=== PATIENT | male | born 1940 | race Caucasian/White ===

== ENCOUNTER 2018-01-26 20:28 | Emergency (ER) | payer MEDICARE, BC ==
[~2018-01-26] VITALS: Ht 185.4 cm; Wt 114.1 kg
[~2018-01-26 20:28] MED LIST: CARAFATE 1GM1 G PO; CELEXA; CELEXA10 MG PO; FLECAINIDE; KLONOPIN 0.5MG0.5 MG PO; LASIX 20MG TABL20 MG PO; LOPID 600M600 MG/TAB PO; LOPID PO; LOPRESSOR 550 MG/TAB; METAPROLOL; NAPROSYN500 MG PO; NEXIUM PO; NORCO 325 MG-51 TAB PO; NORCO 325 MG-7.1 TAB PO; NORVASC 5MG5 MG/TAB PO; PRAVACHOL80 MG PO; PROAIR HFA0.09 MG/AC IH; RESTORIL30 MG PO; SIMVASTATIN; ZOCOR 80MG80 MG
[2018-01-26 20:36] VITALS: TEMP 98.2
[2018-01-26] MEDS ORDERED: PRILOSEC 20MG20 MG PO (20:46)
[2018-01-26] MEDS ORDERED: LIPITOR 10MG10 MG PO (20:48)
[2018-01-26] MEDS ORDERED: TAMBOCOR 1100 MG/TAB PO (20:49)
[2018-01-26] MEDS ORDERED: CARAFATE 1GM1 G PO (20:51)
[2018-01-26 21:18] VITALS: BP 146/70; PULSE 62
== END 2018-01-26 21:18 | disposition home or self-care (01) ==
LOC: COL.ER 20:28
DX: I10 Essential (primary) hypertension (principal); J44.9 Chronic obstructive pulmonary disease, unspecified; F17.210 Nicotine dependence, cigarettes, uncomplicated; Z90.49 Acquired absence of other specified parts of digestive tract; Z90.89 Acquired absence of other organs

== ENCOUNTER 2019-01-29 10:52 | Emergency (ER) | payer MEDICARE, BC ==
[~2019-01-29] VITALS: Ht 185.4 cm; Wt 111.5 kg
[~2019-01-29 10:52] MED LIST changes: +LIPITOR 10MG10 MG PO; +PRILOSEC 20MG20 MG PO; +TAMBOCOR 1100 MG/TAB PO
[2019-01-29 11:08] VITALS: TEMP 98.8
[2019-01-29] MEDS ORDERED: PERCOCET 325 MG1 TA3 PO (12:37)
[2019-01-29 13:01] VITALS: BP 139/80; PULSE 72
== END 2019-01-29 13:05 | disposition home or self-care (01) ==
LOC: COL.ER 10:52
DX: S16.1XXA Strain of muscle, fascia and tendon at neck level, initial encounter (principal); S40.012A Contusion of left shoulder, initial encounter; I10 Essential (primary) hypertension; F17.210 Nicotine dependence, cigarettes, uncomplicated; W19.XXXA Unspecified fall, initial encounter
CPT/HCPCS: J1170; J2550

== ENCOUNTER 2019-01-30 17:51 | Emergency (ER) | payer MEDICARE, BC ==
[~2019-01-30] VITALS: Ht 185.4 cm; Wt 100.0 kg
[~2019-01-30 17:51] MED LIST changes: +PERCOCET 325 MG1 TA3 PO
[2019-01-30 17:52] VITALS: TEMP 97.7
[2019-01-30 19:50] LABS: BASO % 0.2 % (0.0-2.0); EOS % 0.3 % (0-4.0); GRAN # 9.4 (1.4-6.5); GRAN % 81.2 % (42.2-75.2); HEMATOCRIT 42.4 % (42.0-52.0); LYMPH # 0.8 (1.2-3.4); LYMPH % 7.2 % (20.0-51.0); MEAN CELL VOLUME 91 fl (80.0-100.0); MEAN CORPUSCULAR HEMOGLOBIN 30 pg (27.0-31.0); MEAN CORPUSCULAR HGB CONC 33 g/dl (33.0-37.0); MEAN PLATELET VOLUME 9.6 fl (7.4-10.4); MONO # 1.3 (0.1-0.6); MONO % 10.8 % (1.7-9.3); PLATELET COUNT 155 K/mm3 (130-400); RED BLOOD COUNT 4.67 M/mm3 (4.20-5.60)
[2019-01-30 19:59] LABS: ALANINE AMINOTRANSFERASE 14 U/L (21-72); ALBUMIN 4.1 gm/dL (3.5-5.0); ALKALINE PHOSPHATASE 133 U/L (50-136); ANION GAP 9 mmol/L (7-16); AST,SGOT 37 U/L (15-37); BLOOD UREA NITROGEN 9 mg/dL (9-20); CALCIUM 8.9 mg/dL (8.4-10.2); CARBON DIOXIDE 29 mmol/L (22-30); CHLORIDE 100 mmol/L (98-107); CREATINE KINASE 206 U/L (55-170); CREATININE, serum 0.76 (0.66-1.25); GLUCOSE 133 mg/dL (74-106); POTASSIUM 3.3 mmol/L (3.4-5.0); SODIUM 138 mmol/L (137-145); TOTAL PROTEIN 7.9 gm/dL (6.4-8.2)
[2019-01-30 20:01] LABS: INR 1.3 (0.8-3.0); PROTHROMBIN TIME 14.5 SECONDS (9.7-12.8)
[2019-01-30 20:02] LABS: ALCOHOL(ethanol),MEDICAL < 10 mg/dL
[2019-01-30 20:04] LABS: PARTIAL THROMBOPLASTIN TIME 34.6 SECONDS (26.0-37.0)
[2019-01-30 20:12] LABS: TROPONIN-I < 0.012 ng/mL (0.000-0.035)
[2019-01-30 21:40] VITALS: BP 114/73; PULSE 107
== END 2019-01-30 21:45 | disposition short-term general hospital (02) ==
LOC: COL.ER 17:51
PROVIDERS: Emergency Medicine
DX: M54.2 Cervicalgia (principal); M54.6 Pain in thoracic spine; I48.91 Unspecified atrial fibrillation; I10 Essential (primary) hypertension; E78.5 Hyperlipidemia, unspecified; F17.210 Nicotine dependence, cigarettes, uncomplicated; Z90.49 Acquired absence of other specified parts of digestive tract; W18.30XA Fall on same level, unspecified, initial encounter
CPT/HCPCS: J1170; J1650; J2405; J7030

== ENCOUNTER 2019-05-19 20:28 | Emergency (ER) | payer MEDICARE, BC ==
[~2019-05-19] VITALS: Ht 185.4 cm; Wt 111.4 kg
[2019-05-19 20:33] VITALS: BP 142/69; TEMP 97.6
[2019-05-19 20:48] LABS: COLLECTION METHOD CLEAN CATCH
[2019-05-19 21:04] LABS: PH 6 (5-8); SQUAMOUS EPITHELIAL None Seen /hpf; URINE APPEARANCE Cloudy; URINE BACTERIA None Seen /hpf; URINE BILIRUBIN Negative (NEGATIVE); URINE BLOOD 3+ (NEGATIVE); URINE COLOR Amber; URINE GLUCOSE Negative (NEGATIVE); URINE KETONE Negative (NEGATIVE); URINE LEUKOCYTE ESTERASE 2+ (NEGATIVE); URINE NITRATE Negative (NEGATIVE); URINE PROTEIN(semi-quant) 2+ (NEGATIVE); URINE RBC >50 /hpf
[2019-05-19] MEDS ORDERED: CEFTIN500 MG PO (21:18)
[2019-05-19 21:33] VITALS: PULSE 54
== END 2019-05-19 21:35 | disposition home or self-care (01) ==
LOC: COL.ER 20:28
PROVIDERS: Emergency Medicine
DX: N39.0 Urinary tract infection, site not specified (principal); I10 Essential (primary) hypertension; I48.91 Unspecified atrial fibrillation; E78.5 Hyperlipidemia, unspecified; Z90.49 Acquired absence of other specified parts of digestive tract; Z90.89 Acquired absence of other organs
CPT/HCPCS: J0696

== ENCOUNTER 2020-10-27 12:26 | Observation (INO) | payer MEDICARE, BC ==
[2020-10-27] VITALS (8 sets, daily range): BP systolic 123–143; BP diastolic 64–71; PULSE 51–61; TEMP 97.4–98.3
[~2020-10-27] VITALS: Ht 185.4 cm; Wt 101.4 kg
[~2020-10-27 12:26] MED LIST changes: +CEFTIN500 MG PO
[2020-10-27] MEDS ORDERED: ELIQUIS 5MG PO (13:13)
--- NOTE | 2020-10-27 15:00 | NUR ---
PT ARRIVED INTO OP PER WC. PT DROPPED HIM OFF AND WENT HOME. PT HAD SEEN DR NORTH IN THE OFFICE C/O GROSS HEMATURIA. PT ADMITTED FOR PROCEDURE. VSS. HR ANATOLY AT 40 AND SLIGHTLY IRREGULAR, AFEBRILE. HOSPITALIST NOTIFIED OF HR. PT STATED HAVING 6 SHOTS OF BOURBON AND HAD TAKEN HIS BP MEDS AND ELOQUIST. BREAKFAST WAS EATEN AT 9AM. LAST DRINK AT 11;00AM. PT ANSWERED AFFIRMATIVE TO THE SUICIDE QUESTIONS AND TANDEM OPERATOR WAS NOTIFIED. PT IS IN BED. IV STARTED TO LEFT WRIST (#20).SIDE RAILS UP, CALL LIGHT IN REACH.
--- NOTE | 2020-10-27 16:32 | NUR ---
GREGORY responded to consult. The patient is to have surgery today and arrived intoxicated. He also answered yes to the first two questions on the suicide assessment quiz. GREGORY met with the patient and addressed the above. The patient states that he had 3-4 oz of bourbon before coming in today. He states that he does drink every evening and has bourbon. SW discussed inpatient/outpatient alcohol treatment. The patient states that he is not interested in any treatment and can quit on his own if he wants to. The patient states that he has been more sad lately, because his has talked about them moving to [place] to live closer to their daughter. He states that this area is his home and all he knows. He states that he has had thoughts of suicide, but could and wound never go through with it. SW discussed talking to someone and informed him of the different outpatient mental health options. The patient states that he has gone to [facility] in the past. SW offered to get him re-established and an appointment at [facility]. The patient states that he does not want to get get set up with [facility] or anywhere else right now. GREGORY informed him that GREGORY would provide his RN with a list of resources. The patient verbalized understanding and was agreeable to this. The patient states that he lives in [place] with his , Natasha (ph#[phone]). GREGORY updated the surgical staff on the above information and provided them with the list of outpatient mental health and drug and alcohol resources. GREGORY then contacted and updated the patient's , Natasha. Natasha is aware of the patient's drinking and sadness. She states that plan is for the patient to return back home with her, as long as he is able to.
--- NOTE | 2020-10-27 17:40 | NUR ---
PATIENT IS DROWSY BUT ORIENTED X3. VSS. DENIES PAIN. CBI INFUSING AT MOD RATE. SPARROW TO DD WITH CLEAR YELLOW URINE NOTED, NO CLOTS. PATIENT WAS ADMITED WITH ETOH OF 179. PATIENT HAS AN EXTENSIVE ALCOHOL ABUSE HX. PATIENT ALSO REPORTS HEMATURIA FOR THE LAST COUPLE MONTH BUT HAS RECENTLY GOTTEN WORSE. SEIZURE PRECAUTIONS IN PLACE. TELE ON. PATIENT ALSO HAS CARDIAC HX OF A-FIB AND WAS TAKING ELEQUIS. HEAD TO TOE ASSESSMENT COMPLETE. PATIENT SLEEPING. IV FLUIDS INFUSING INTO LEFT WRIST IV. CLEARS AT BEDSIDE. NO ISSUES WITH N/V. PATIENT RESTING QUIETLY WITH CALL LIGHT IN REACH.
[2020-10-27 17:52] LABS: BASO # 0.1 (0.0-0.2); BASO % 0.9 % (0.0-2.0); EOS # 1.6 (0.0-0.7); EOS % 20.8 % (0-4.0); GRAN # 4.2 (1.4-6.5); GRAN % 54.2 % (42.2-75.2); HEMATOCRIT 42.9 % (42.0-52.0); HEMOGLOBIN 14.2 g/dl (13.5-18.0); LYMPH # 1.4 (1.2-3.4); LYMPH % 18.4 % (20.0-51.0); MEAN CELL VOLUME 94 fl (80.0-100.0); MEAN CORPUSCULAR HEMOGLOBIN 31 pg (27.0-31.0); MEAN CORPUSCULAR HGB CONC 33 g/dl (33.0-37.0); MEAN PLATELET VOLUME 9.1 fl (7.4-10.4); MONO # 0.4 (0.1-0.6); MONO % 5.4 % (1.7-9.3); PLATELET COUNT 146 K/mm3 (130-400); RED BLOOD COUNT 4.56 M/mm3 (4.20-5.60); REDCELL DISTRIBUTION WIDTH-CV 13.6 % (11.5-14.5)
[2020-10-27 18:01] LABS: ALBUMIN 4.3 gm/dL (3.5-5.0); BILIRUBIN,TOTAL 1.1 mg/dL (0.0-1.0); CALCIUM 8.5 mg/dL (8.4-10.2); CREATININE, serum 0.93 (0.66-1.25); MAGNESIUM 1.2 mg/dL (1.6-2.3); TOTAL PROTEIN 7.3 gm/dL (6.4-8.2)
[2020-10-27 18:04] LABS: INR 1.3 (0.8-3.0); PROTHROMBIN TIME 15.1 SECONDS (9.7-12.8)
[2020-10-27 18:07] LABS: PARTIAL THROMBOPLASTIN TIME 39.1 SECONDS (26.0-37.0)
--- NOTE | 2020-10-27 20:40 | NUR ---
Pt. laying in bed at this time. Pt. is A&OX3, Assessment complete. IV to lt. wrist patent, IV fluids infusing per orders. Three way corcoran catheter with CBI, urine is clear light yellow. Pt. denies pain or other needs, call light within reach.
[2020-10-28 01:08] VITALS: BP 113/72; PULSE 61; TEMP 98.6
[2020-10-28 04:00] VITALS: BP 139/79; PULSE 62
[2020-10-28 07:11] LABS: HEMATOCRIT 41.1 % (42.0-52.0); HEMOGLOBIN 13.7 g/dl (13.5-18.0); MEAN CELL VOLUME 93 fl (80.0-100.0); MEAN CORPUSCULAR HEMOGLOBIN 31 pg (27.0-31.0); MEAN CORPUSCULAR HGB CONC 33 g/dl (33.0-37.0); MEAN PLATELET VOLUME 9.7 fl (7.4-10.4); PLATELET COUNT 134 K/mm3 (130-400); RED BLOOD COUNT 4.41 M/mm3 (4.20-5.60); REDCELL DISTRIBUTION WIDTH-CV 13.2 % (11.5-14.5)
[2020-10-28 07:21] LABS: ALBUMIN 4.1 gm/dL (3.5-5.0); BILIRUBIN,TOTAL 1.2 mg/dL (0.0-1.0); CALCIUM 8.4 mg/dL (8.4-10.2); CREATININE, serum 1.07 (0.66-1.25); MAGNESIUM 2.3 mg/dL (1.6-2.3); POTASSIUM 4.5 mmol/L (3.4-5.0)
[2020-10-28 07:52] VITALS: BP 135/60; PULSE 48; PULSE 84; TEMP 98.3
--- NOTE | 2020-10-28 09:10 | NUR ---
Patient was doing fine with breakfast. He was not agitated or upset. After he finished breakfast he became upset that Dr Albrecht has been in to see him yet. Explained that Dr Albrecht will be here but he is not here yet. He demanded Dr Albrecht be called and his catheter be removed. He started to say we can not keep him here against his will. Explained that is not what is going on, that Dr Albrecht will discharge him when he comes up. Patient wants to smoke and have his catheter taken out. Explained will check with Dr Albrecht about discontinuing corcoran catheter. No other changes at this time. Call light within reach. Bed alarm on.
--- NOTE | 2020-10-28 09:45 | NUR ---
J Carlos bertrand primed and pulled. Explained to patient to drink fluids to help flush his bladder and that he has to void before discharging. Patient is starting to score on the Detox scale. He is refusing to take medications. He is scoring because he is starting to have tremors and it getting agitated. Dr Prather speaking with patient at this time. Encouraged patient drink fluids to help him void. He wants to get dressed and go smoke. Explained that he can not leave the floor to smoke. No other changes at this time. Call light within reach.
[2020-10-28 10:00] VITALS: BP 137/58; PULSE 61
[2020-10-28 11:31] VITALS: BP 143/64; PULSE 61; TEMP 97.3
--- NOTE | 2020-10-28 12:13 | NUR ---
stopped by but nothing needed at this time.
--- NOTE | 2020-10-28 12:15 | NUR ---
Patient is leaving against medical advice. He barely voided once before demanding to leave. Dr Albrecht here to see patient. Patient did not want to go over discharge paperwork. He became more and more aggitated while talking about waiting for Dr Albrecht. He wanted to go smoke and have a drink. He was upset stating we were keeping him hostage. All belongings packed up and sent with patient. INT discontinued. Patient walked out through ED entrance. His is picking him up.
== END 2020-10-28 12:25 | disposition home or self-care (01) ==
LOC: SDCO 12:26 → SURG 13:25 → SDCO 15:00 → SURG 10-28 12:25
PROVIDERS: Physician Assistant; ADMIT Urology
DX: R31.0 Gross hematuria (principal); I10 Essential (primary) hypertension; E78.5 Hyperlipidemia, unspecified; I48.91 Unspecified atrial fibrillation; F17.210 Nicotine dependence, cigarettes, uncomplicated; G89.29 Other chronic pain; Z92.3 Personal history of irradiation; Z88.1 Allergy status to other antibiotic agents; Z79.01 Long term (current) use of anticoagulants
CPT/HCPCS: 99222; 99232-AI; G0378; J0690; J1100; J1170; J2405; J2704; J3010; J3475; J3480; Q9967

== ENCOUNTER 2021-10-12 12:16 | Emergency (ER) | payer MEDICARE, BC ==
[~2021-10-12] VITALS: Ht 185.4 cm; Wt 90.9 kg
[~2021-10-12 12:16] MED LIST changes: +ELIQUIS 5MG PO
[2021-10-12 12:39] VITALS: BP 116/68; PULSE 52; TEMP 98.4
[2021-10-12] MEDS ORDERED: AMOXICILLIN 50500 MG PO (12:58)
== END 2021-10-12 13:18 | disposition home or self-care (01) ==
LOC: COL.ER 12:16
DX: K06.2 Gingival and edentulous alveolar ridge lesions associated with trauma (principal); Z90.49 Acquired absence of other specified parts of digestive tract; Z88.1 Allergy status to other antibiotic agents

== ENCOUNTER 2022-05-13 13:22 | Emergency (ER) | payer MEDICARE, BC ==
[~2022-05-13] VITALS: Ht 185.4 cm; Wt 88.6 kg
[~2022-05-13 13:22] MED LIST changes: +AMOXICILLIN 50500 MG PO
[2022-05-13 13:46] VITALS: TEMP 97.4
[2022-05-13 16:14] VITALS: BP 124/88; PULSE 79
== END 2022-05-13 16:17 | disposition home or self-care (01) ==
LOC: COL.ER 13:22
DX: S00.12XA Contusion of left eyelid and periocular area, initial encounter (principal); F17.210 Nicotine dependence, cigarettes, uncomplicated; Z79.01 Long term (current) use of anticoagulants; W01.0XXA Fall on same level from slipping, tripping and stumbling without subsequent striking against object, initial encounter